=== PATIENT | female | born 1950 | race Caucasian/White ===

== ENCOUNTER → 2017-07-08 15:22 | Outpatient (CLI) | payer MEDICARE, SELFPAY ==
[2017-07-08 17:38] LABS: Absolute Lymphocyte Count 2.49 X10^3/ul (0.83-4.51); Absolute Neutrophil Count 3.7 X10^3/uL (2.0-7.7); Basophil# 0.03 X10^3/uL; Basophil% 0.4 % (0-1); Eosinophil# 0.09 X10^3/uL; Eosinophils% 1.3 % (0-5); Hematocrit 35.2 % (37-47); Hemoglobin 11.1 g/dl (12.0-15.0); Lymphocyte # 2.49 X10^3/ul (4.0); Lymphocyte % 37.1 % (19-41); Mean Corp Hgb Conc 31.5 g/gl (32-36); Mean Corpuscular Hgb 23.7 pg (27.0-32.0); Mean Corpuscular Volume 75.1 fL (81-99); Mean Platelet Vol. 10.3 fl (6.2-12.0); Monocyte# 0.39 X10^3/uL; Monocyte% 5.8 % (0-10); Neutrophil # 3.72 X10^3/uL (2.7-7.7); Neutrophil % 55.4 % (47-70); Platelet Count 279 K/mm3 (150-450); RBC Distribution Width CV 15.1 % (11.6-14.6); RBC Distribution Width SD 41.1 fl (35.1-43.9); Red Blood Count 4.69 M/mm3 (4.2-5.4); White Blood Count 6.7 K/mm3 (4.4-11.0)
[2017-07-08 17:39] LABS: POSITIVE COUNT NO; POSITIVE DIFFERENTIAL NO; POSITIVE MORPHOLOGY NO
[2017-07-08 18:38] LABS: T3 Total - Triiodothyronine 0.82 ng/mL (0.6-1.81)
[2017-07-08 18:40] LABS: BUN 22 mg/dL (7-18); Creatinine, Serum 0.84 mg/dL (0.55-1.02); Glucose 84 mg/dL (74-106)
[2017-07-08 18:41] LABS: ALB/GLOB Ratio 1.2 RATIO (0.9-2.4); AST(SGOT) 15 U/L (15-37); Alanine Aminotransfer ALT/SGPT 22 U/L (13-56); Albumin, Serum 3.9 g/dL (3.2-5.0); Alkaline Phosphatase 53 U/L (45-117); Anion Gap 11 (5-15); BUN/Creat Ratio 26.1 RATIO (10-20); Calcium,Total 8.8 mg/dL (8.5-10.1); Chloride 103 mmol/L (98-107); EST Glomerular Filtration Rate 71 mL/min (>60); Est Glom Filt Rate - Afr Amer 86 mL/min (>60); Globulin 3.2 g/dL (2.2-4.2); Potassium 3.9 mmol/L (3.5-5.1); Protein, Total 7.1 g/dL (6.4-8.2); Sodium Level 140 mmol/L (136-145); T4 Free Direct 0.81 ng/dL (0.76-1.46); Thyroid Stim Hormone (TSH) 1.51 uIU/mL (0.358-3.74)
== END ==
PROVIDERS: Family Provider Family Medicine; PCP Family Medicine; Visit Provider Family Medicine
DX: K59.09 Other constipation (principal); R53.83 Other fatigue; R30.0 Dysuria
CPT/HCPCS: 36415; 80053; 84439; 84443; 84480; 85025; 87086; 87088

== ENCOUNTER 2017-11-19 20:38 | Emergency (ER) | payer MEDICARE, SELFPAY ==
[2017-11-19 20:38] VITALS: BP 120/62; PULSE 64; RESP 12; TEMP 36.9; O2SAT 100; BMI 24.5
--- NOTE | 2017-11-19 21:12 | EKG12_ITS ---
Test Reason : CP Blood Pressure : / mmHG Vent. Rate : 061 BPM Atrial Rate : 061 BPM P-R Int : 152 ms QRS Dur : 074 ms QT Int : 428 ms P-R-T Axes : 056 019 073 degrees QTc Int : 430 ms Sinus rhythm with Fusion complexes Nonspecific T wave abnormality Abnormal ECG Confirmed by TIM MARTINEZ, ARYA ([id number]), editor news DELMY MCMAHON ([id number]) on 11/20/2017 1:03:38 PM Referred By: TARA Confirmed By:ARYA DUMONT MD
--- NOTE | 2017-11-19 21:15 | RAD_ITS ---
STUDY: X-RAY CHEST REASON FOR EXAM: Female, 67 years old. Chest pain TECHNIQUE: Single AP portable view of the chest. COMPARISON: 08/03/2015. FINDINGS: The lungs are clear and expanded. There is no demonstrated pleural abnormality. Normal size heart. Normal mediastinum and suraj. Normal visualized pulmonary arteries. Normal visualized aortic arch and descending thoracic aorta. There is a dextroscoliosis of the thoracic spine. Normal visualized ribs, clavicles, and shoulders. There is no demonstrated abnormality of the visualized soft tissue structures of the upper abdomen. RAD/Chest 1 View (Portable) IMPRESSION: No acute chest disease. Electronically Signed: Jj Navarro MD at 21:29 EDT , Service support ,
[2017-11-19 21:23] LABS: Absolute Neutrophil Count 2.6 X10^3/uL (2.0-7.7); Basophil# 0.02 X10^3/uL; Basophil% 0.3 % (0-1); Eosinophils% 1.7 % (0-5); Hematocrit 31.6 % (37-47); Hemoglobin 10.1 g/dl (12.0-15.0); Lymphocyte % 47.3 % (19-41); Mean Corpuscular Hgb 23.4 pg (27.0-32.0); Mean Corpuscular Volume 73.3 fL (81-99); Mean Platelet Vol. 9.5 fl (6.2-12.0); Monocyte% 6.8 % (0-10); Neutrophil # 2.59 X10^3/uL (2.7-7.7); Neutrophil % 43.7 % (47-70); Platelet Count 181 K/mm3 (150-450); RBC Distribution Width CV 14.4 % (11.6-14.6); RBC Distribution Width SD 38.6 fl (35.1-43.9); Red Blood Count 4.31 M/mm3 (4.2-5.4); White Blood Count 5.9 K/mm3 (4.4-11.0)
[2017-11-19 21:25] LABS: Differential Indicated SCAN CRITERIA MET; POSITIVE COUNT NO; POSITIVE DIFFERENTIAL NO; POSITIVE MORPHOLOGY YES
[2017-11-19 21:33] LABS: Anion Gap 9 (5-15); BUN 19 mg/dL (7-18); BUN/Creat Ratio 24.2 RATIO (10-20); Calcium,Total 8.5 mg/dL (8.5-10.1); Chloride 102 mmol/L (98-107); Creatinine, Serum 0.78 mg/dL (0.55-1.02); EST Glomerular Filtration Rate 77 mL/min (>60); Est Glom Filt Rate - Afr Amer 94 mL/min (>60); Estimated Creatinine Clearance 38.68 ml/min; Glucose 98 mg/dL (74-106); Potassium 3.3 mmol/L (3.5-5.1); Sodium Level 136 mmol/L (136-145)
--- NOTE | 2017-11-19 21:35 | ED.DCSUM_ITS ---
- ER Visit Summary Date of Service: 11/19/17 Chief Complaint: Epigastric abdominal pain History of Present Illness: The patient is a 67 F hobson eating dinner with her family at a restaurant. At sudden onset epigastric abdominal pain around 8 PM. Denies nausea or vomiting. Denies diarrhea. No melena. Says there is absolutely no chest pain. She did not feel like she could take a deep breath. Currently states the pain is much better. She has had a prior cholecystectomy. Denies any underlying cardiac history. States she is very healthy works out multiple times a week has had no chest pain or exertional dyspnea recently. States that she has had some constipation last several days. Denies any fever. Physical Examination: Well-appearing older female. Vital signs are stable afebrile. Her pulse ox is 100% on room air. No signs of hypoxia. H EENT exam unremarkable. Neck nontender. Lungs clear to auscultation bilaterally. Heart regular rhythm no murmur rate about 65. Abdomen is soft nondistended normal bowel sounds. She does have mild epigastric tenderness. No rebound or guarding. No rigidity. No pulsatile mass. No hernias or masses. No distention. Right upper and right lower quadrant unremarkable. Normal bowel sounds. No peritoneal signs. Moving all 4 extremities. Neurovascularly intact. Calves are nontender. Normal dorsi plantarflexion. Normal DP pulses. Normal radial pulses. Back exam nontender. Neurologic exam normal. No focal motor deficits. Test Results: CBC white count of 5.9. H&H 10 and 31 which is around her baseline anemia. Electrolytes potassium 3.3. Normal creatinine and gap. Liver enzymes ALT slightly elevated at 103 AST is 213 lipase is normal. Troponin normal. EKG sinus rhythm she did have some inverted T waves and ST flattening which is also seen on a prior EKG from 2016. Chest x-ray was unremarkable normal cardiac silhouette and mediastinum. KUB showed a large amount of fecal stool. No signs of obstruction no free air. She had scoliosis and degenerative changes of her lumbar spine. Patient did also have a CT abdomen and pelvis to the amount of pain and she became transiently hypotensive after pain meds. This was read by the radiologist reviewed by me again showed a retention but nothing else acute. No bowel obstruction. No AAA. No free air. Emergency Department Course and Treatment: Patient will undergo both cardiac and abdominal workup. She was treated with morphine. A liter normal saline. Multiple repeat exams she is doing better currently at 2345. Patient will be treated with p.o. magnesium citrate. If she has a large bowel movement she will be discharged to home. Treatment Plan: Plenty of fluids, fiber and home-going instructions for constipation. Disposition: Discharge Impression: Acute epigastric abdominal pain secondary to constipation This note was generated with [employer] dictation software. It may contain incorrect words, spelling, and punctuation that were not noted in review of the chart prior to signing ED Disposition - Plan for ED Patient: Chief Complaint: Chest Pain Referrals: Allie Mcfarlane DO [Primary Care Provider] -
[2017-11-19 21:37] LABS: Differential Comment SCANNED
[2017-11-19 21:44] VITALS: BP 116/74; PULSE 62; RESP 18; O2SAT 100
--- NOTE | 2017-11-19 21:45 | RAD_ITS ---
STUDY: X-RAY - ABDOMEN/PELVIS REASON FOR EXAM: Female, 67 years old. Abdominal pain. TECHNIQUE: Single AP view of the abdomen / pelvis. COMPARISON: None. FINDINGS: Normal visualized lung bases. There is an abundance of fecal material throughout the colon. No definite bowel obstruction. There is no demonstrated free abdominal air. The visualized liver, spleen and kidneys are grossly normal in size and morphology. Normal soft tissue structures. Mild to moderate levoconvex scoliosis. RAD/Abdomen Single View (Portable) IMPRESSION: Marked diffuse fecal retention. Electronically Signed: Jj Navarro MD at 22:17 EDT , Service support ,
[2017-11-19 22:03] LABS: Lipase 255 U/L (73-393)
[2017-11-19] MEDS: Morphine 4 MG/ML Syringe IV (22:08)
[2017-11-19] MEDS: Ondansetron 4 MG/2 ML Vial IV (22:08)
[2017-11-19 22:09] LABS: AST(SGOT) 213 U/L (15-37); Alanine Aminotransfer ALT/SGPT 103 U/L (13-56); Albumin, Serum 3.9 g/dL (3.2-5.0); Alkaline Phosphatase 50 U/L (45-117); Bilirubin, Direct 0.15 mg/dL (0.00-0.30); Globulin 3.1 g/dL (2.2-4.2)
--- NOTE | 2017-11-19 22:33 | CT_ITS ---
STUDY: CT ABDOMEN AND PELVIS WITH CONTRAST REASON FOR EXAM: Female, 67 years old. Epigastric pain. RADIATION DOSAGE (If Supplied By Facility): CTDIvol = ( 11.01 ) mGy, DLP = ( 549.42 ) mGycm TECHNIQUE: Transaxial images were obtained from the dome of the diaphragm to the symphysis pubis without oral contrast. 100ML ml of Isovue 300 contrast was administered. Sagittal and coronal images were reconstructed. Individualized dose optimization techniques were used for this CT. COMPARISON: 10/08/2015 FINDINGS: The visualized lung bases are unremarkable. The visualized portions of the heart are within normal limits. Normal liver. There are surgical clips in the gallbladder fossa consistent with a prior cholecystectomy. Normal spleen. Normal pancreas. Normal bilateral adrenal glands. Normal right kidney. Normal left kidney. Evaluation of the GI tract is limited by absence of oral contrast. Cannot exclude stomach wall thickening. No dilated loops of bowel or evidence for obstruction. Cannot exclude segmental thickening of the wu of the small or large bowel. Cannot exclude enteritis or colitis. There is marked diffuse fecal retention throughout the colon. Appendix within normal limits. Normal abdominal aorta. Normal inferior vena cava. Normal retroperitoneum. Normal urinary bladder. Normal visualized uterus. Normal abdominal wall. There are diffuse degenerative changes of the visualized lumbar spine. [id number]-hp-[id number] levoconvex scoliosis. CT/Abdomen/Pelvis W IV Cont ONLY IMPRESSION: No definite acute abnormality. However there is marked diffuse fecal retention, and evaluation of the GI tract is in general, limited by the absence of oral contrast. Electronically Signed: Jj Navarro MD at 23:21 EDT , Service support ,
[2017-11-19] MEDS: 0.9% Normal Saline 1,000 ML 1000 ML IV (22:37)
[2017-11-19 22:38] VITALS: BP 83/50; PULSE 59
[2017-11-19 22:44] VITALS: BP 72/43; PULSE 64; RESP 24; O2SAT 100
[2017-11-19 23:25] VITALS: BP 109/67; PULSE 66; RESP 16; O2SAT 100
--- NOTE | 2017-11-19 23:50 | ED.DEP ---
ED Disposition - Plan for ED Patient: Disposition: Home or Assisted Living Chief Complaint: Chest Pain Instructions: ED Constipation Referrals: Allie Mcfarlane DO [Primary Care Provider] - As Needed Additional Instructions: Plenty of fluids and fiber. At home he may want to consider stool softeners to help have regular bowel movements. Follow-up your primary care physician or return if feeling worse.
[2017-11-19] MEDS: Magnesium Citrate 300 ML PO (23:51)
--- NOTE | 2017-11-20 00:24 | ED.DEP ---
ED Disposition - Plan for ED Patient: Disposition: Home or Assisted Living Chief Complaint: Chest Pain Instructions: ED Constipation Prescriptions: Peg 3350/Na Sulf,Bicarb,Cl/KCl [Golytely Solution] 4,000 ml PO X1 #1 soln.recon Referrals: Allie Mcfarlane DO [Primary Care Provider] - As Needed Additional Instructions: Plenty of fluids and fiber. At home he may want to consider stool softeners to help have regular bowel movements. Follow-up your primary care physician or return if feeling worse.
== END 2017-11-20 00:54 | disposition home or self-care (01) ==
PROVIDERS: Emergency Provider Emergency Medicine; Family Provider Family Medicine; PCP Family Medicine
DX: K59.00 Constipation, unspecified (principal); M41.9 Scoliosis, unspecified; Z90.49 Acquired absence of other specified parts of digestive tract
CPT/HCPCS: 71045; 74018; 74177; 80048; 80076; 83690; 84484; 85025; 93005; 96374; 99285; J7030; Q9967; A4216; J2405

== ENCOUNTER → 2018-05-13 16:05 | Outpatient (CLI) | payer MEDICARE, SELFPAY ==
[2018-05-13 18:07] LABS: ALB/GLOB Ratio 1.3 RATIO (0.9-2.4); AST(SGOT) 14 U/L (15-37); Alanine Aminotransfer ALT/SGPT 30 U/L (13-56); Albumin, Serum 4.2 g/dL (3.2-5.0); Alkaline Phosphatase 56 U/L (45-117); Anion Gap 7 (5-15); BUN 24 mg/dL (7-18); Calcium,Total 8.8 mg/dL (8.5-10.1); Chloride 104 mmol/L (98-107); Cholesterol 260 mg/dL (200); Creatinine, Serum 0.67 mg/dL (0.55-1.02); EST Glomerular Filtration Rate 93 mL/min (>60); Est Glom Filt Rate - Afr Amer 113 mL/min (>60); Globulin 3.3 g/dL (2.2-4.2); Glucose 88 mg/dL (74-106); High Density Lipoprotein 103 mg/dL; Potassium 3.7 mmol/L (3.5-5.1); Protein, Total 7.5 g/dL (6.4-8.2); Sodium Level 138 mmol/L (136-145); Triglycerides 74 mg/dL; Very Low Density Lipoprotein 15 mg/dL (5-40)
== END ==
PROVIDERS: Family Provider Family Medicine; PCP Family Medicine; Visit Provider Family Medicine
DX: Z51.81 Encounter for therapeutic drug level monitoring (principal); E78.5 Hyperlipidemia, unspecified
CPT/HCPCS: 36415; 80053; 80061

== ENCOUNTER → 2018-07-27 12:00 | Outpatient (CLI) | payer MEDICARE, SELFPAY ==
--- NOTE | 2018-07-27 12:02 | BI_ITS ---
MAMMOGRAPHY - BILATERAL SCREENING REASON FOR EXAM: Female, 68 years old. Routine annual screening examination. PERTINENT HISTORY: Mother with breast cancer. TECHNIQUE: Digital bilateral breast ginny (3D mammographic acquisition) in the CC and MLO projections. 2-D mediolateral oblique (MLO) and craniocaudad (CC) views of both breasts were obtained. CAD: Full Field Digital Mammography with Computer Added Detection was performed. COMPARISON: Comparison is made with prior study dated March 21, 2017 and February 26, 2016. FINDINGS: Breast Composition: There are scattered areas of fibroglandular density. There are no dominant masses or suspicious calcifications. Stable 9.3 mm x 10 mm calcified nodule in the central slightly medial aspect of the left breast suggestive of a calcifying fibroadenoma. No other significant abnormalities are identified. There has been no significant change since the prior study. BI/SCREENING MAMM (CAD), BILAT IMPRESSION: Stable bilateral screening mammogram. Yearly follow-up mammogram recommended. (A) ASSESSMENT CATEGORY: BIRADS Category 2: Benign. A letter regarding these results will be sent to the patient by the facility within 30 days. Approximately 10% of breast cancers are not detected by mammography. A normal mammogram should not delay biopsy of a clinically suspicious abnormality. [id number] Electronically Signed: Huseyin Crawley, at 13:58 EDT , Service support ,
== END ==
PROVIDERS: Family Provider Family Medicine; PCP Family Medicine; Referring Provider Family Medicine; Visit Provider Family Medicine
DX: Z12.31 Encounter for screening mammogram for malignant neoplasm of breast (principal)
CPT/HCPCS: 77063; 77067

== ENCOUNTER → 2018-08-24 14:12 | Outpatient (CLI) | payer MEDICARE, SELFPAY ==
[2018-08-24 12:36] VITALS: BMI 23.0
[2018-08-24 14:28] LABS: Bacteria 0 SEEN /hpf (None Seen); Mucous, Urine 0 SEEN /hpf (<or=2+); White Blood Cells 0 SEEN /hpf (0-5)
[2018-08-24 14:55] LABS: Color, Urine Yellow (Yellow); Glucose, Dipstick Normal (Normal); Ketone-Dipstick Negative (Negative); Leukocyte Esterase-Dipstick Negative /ul (Negative); Nitrite-Dipstick Negative (Negative); Occult Blood-Urine 25 /ul (Negative); Protein-Dipstick Negative (Negative); Urine Bilirubin Dipstick Negative (Negative); Urine Clarity Sl. Cloudy (Clear); Urine Urobilinogen Normal (Normal)
[2018-08-24 15:03] LABS: Red Blood Cells-Urine 0-5 SEEN /hpf (0-5); Squamous Epithelial Cells - UA 0-5 SEEN /hpf (5-10)
== END ==
PROVIDERS: Family Provider Family Medicine; PCP Family Medicine; Referring Provider Physician Assistant Surgical; Visit Provider Physician Assistant Surgical
DX: R39.15 Urgency of urination (principal); R35.0 Frequency of micturition
CPT/HCPCS: 81001; 87086

== ENCOUNTER → 2018-10-11 14:25 | Outpatient (CLI) | payer MEDICARE, SELFPAY ==
[2018-10-11 10:43] VITALS: BMI 22.9
[2018-10-11 14:35] LABS: Bacteria 0 SEEN /hpf (None Seen); Mucous, Urine 0 SEEN /hpf (<or=2+); Red Blood Cells-Urine 0 SEEN /hpf (0-5); Squamous Epithelial Cells - UA 0 SEEN /hpf (5-10); White Blood Cells 0 SEEN /hpf (0-5)
[2018-10-11 14:40] LABS: Color, Urine Yellow (Yellow); Glucose, Dipstick Normal (Normal); Ketone-Dipstick Negative (Negative); Leukocyte Esterase-Dipstick Negative /ul (Negative); Nitrite-Dipstick Negative (Negative); Occult Blood-Urine 25 /ul (Negative); Protein-Dipstick Negative (Negative); Urine Bilirubin Dipstick Negative (Negative); Urine Clarity Clear (Clear); Urine Urobilinogen Normal (Normal)
== END ==
PROVIDERS: Family Provider Family Medicine; PCP Family Medicine; Referring Provider Physician Assistant Surgical; Visit Provider Physician Assistant Surgical
DX: R30.0 Dysuria (principal)
CPT/HCPCS: 81001; 87086

== ENCOUNTER → 2018-10-26 17:10 | Outpatient (CLI) | payer MEDICARE, SELFPAY ==
[2018-10-26 11:12] VITALS: BMI 22.9
== END ==
PROVIDERS: Family Provider Family Medicine; PCP Family Medicine; Referring Provider Nurse Practitioner Women's Health; Visit Provider Nurse Practitioner Women's Health
DX: R39.15 Urgency of urination (principal)
CPT/HCPCS: 87070; 87205

== ENCOUNTER → 2019-05-23 11:03 | Outpatient (CLI) | payer MEDICARE, SELFPAY ==
[2019-05-13 17:37] VITALS: BMI 22.9
[2019-05-23 12:25] LABS: Absolute Lymphocyte Count 2.61 X10^3/uL (0.83-4.51); Absolute Neutrophil Count 2.5 X10^3/uL (2.0-7.7); Basophil# 0.02 X10^3/uL; Basophil% 0.4 % (0-1); Eosinophil# 0.08 X10^3/uL; Eosinophils% 1.4 % (0-5); Hemoglobin 11.5 g/dL (12.0-15.0); Lymphocyte # 2.61 X10^3/ul (4.0); Lymphocyte % 46.6 % (19-41); Mean Corp Hgb Conc 30.3 g/dL (32-36); Mean Corpuscular Hgb 22.4 pg (27.0-32.0); Mean Corpuscular Volume 74.1 fL (81-99); Mean Platelet Vol. 9.6 fl (6.2-12.0); Monocyte# 0.34 X10^3/uL; Monocyte% 6.1 % (0-10); NRBC Flagged by Analyzer 0 % (0-5); Neutrophil # 2.53 X10^3/uL (2.7-7.7); Neutrophil % 45.1 % (47-70); Platelet Count 332 K/mm3 (150-450); RBC Distribution Width CV 14.8 % (11.6-14.6); RBC Distribution Width SD 39.6 fl (35.1-43.9); Red Blood Count 5.13 M/mm3 (4.2-5.4); White Blood Count 5.6 K/mm3 (4.4-11.0)
[2019-05-23 13:04] LABS: ALB/GLOB Ratio 1.2 RATIO (0.9-2.4); AST(SGOT) 11 U/L (15-37); Alanine Aminotransfer ALT/SGPT 24 U/L (13-56); Albumin, Serum 3.9 g/dL (3.2-5.0); Alkaline Phosphatase 55 U/L (45-117); Anion Gap 7 (5-15); BUN 16 mg/dL (7-18); BUN/Creat Ratio 21.1 RATIO (10-20); Calcium,Total 8.9 mg/dL (8.5-10.1); Chloride 105 mmol/L (98-107); Cholesterol 240 mg/dL (200); Creatinine, Serum 0.76 mg/dL (0.55-1.02); EST Glomerular Filtration Rate 80 mL/min (>60); Est Glom Filt Rate - Afr Amer 97 mL/min (>60); Globulin 3.2 g/dL (2.2-4.2); Glucose 93 mg/dL (74-106); High Density Lipoprotein 105 mg/dL; Potassium 3.9 mmol/L (3.5-5.1); Protein, Total 7.1 g/dL (6.4-8.2); Sodium Level 139 mmol/L (136-145); Thyroid Stim Hormone (TSH) 1.36 uIU/mL (0.358-3.74); Triglycerides 51 mg/dL; Very Low Density Lipoprotein 10 mg/dL (5-40)
== END ==
PROVIDERS: PCP Family Medicine; Visit Provider Family Medicine
DX: Z00.00 Encounter for general adult medical examination without abnormal findings (principal); E78.5 Hyperlipidemia, unspecified; R53.83 Other fatigue; Z51.81 Encounter for therapeutic drug level monitoring
CPT/HCPCS: 36415; 80053; 80061; 84443; 85025

== ENCOUNTER → 2019-05-24 08:24 | Outpatient (REF) | payer MEDICARE, SELFPAY ==
[2019-05-24 08:15] VITALS: BMI 24.0
--- NOTE | 2019-05-24 08:34 | RAD_ITS ---
HISTORY: BILATERAL HAND NUMBNESS AND NECK PAIN TECHNIQUE: Cervical spine 5 views Number of images including paperwork: 5 COMPARISON: 09/01/2014 FINDINGS: VERTEBRAE: No acute fracture. VERTEBRAL ALIGNMENT: No traumatic subluxation. DISKS AND JOINTS: Moderate to severe disc space narrowing at C5-6 with osteophyte formation, increased compared to the previous study. Facet arthropathy. SOFT TISSUES: Unremarkable paraspinous soft tissues. RAD/Cerv Spine 4 or 5 Views IMPRESSION: No acute osseous abnormality. Cervical spondylosis. at 0528 Reported and signed by: Heather Barahona MD Electronically Signed: Heather Barahona MD at 5:28 EST Tel , Service support ,
== END ==
LOC: HPRAD 08:24
PROVIDERS: PCP Family Medicine; Referring Provider Family Medicine; Visit Provider Family Medicine
DX: M54.2 Cervicalgia (principal); R20.0 Anesthesia of skin
CPT/HCPCS: 72050

== ENCOUNTER → 2019-08-30 06:21 | Outpatient (CLI) | payer MEDICARE, SELFPAY ==
[2019-05-31 09:46] VITALS: BMI 24.0
--- NOTE | 2019-05-31 10:31 | HP_ITS ---
Intake Vital Signs 05/31/19 BMI 24.0 05/31/19 Height 5 ft 05/31/19 Weight: 124 lb 05/31/19 BMI 24.2 05/31/19 BP 157/82 H 05/31/19 Blood Pressure Location Rt brachial 05/31/19 Position Sitting 05/31/19 Respiration 18 05/31/19 Pulse 67 05/31/19 Pulse Source Monitor 05/31/19 Temp 98.0 F 05/31/19 Temp Source Oral 05/31/19 Pulse Oximetry (%) 100 05/31/19 Oxygen Delivery Method room air Intake Visit Reasons: abd pain, cscope Chief Complaint: constipation/abdominal pain Fur Repair Inspector Required: No Is patient in pain?: No Allergies No Known Allergies Allergy (Verified 05/31/19 09:45) Medications Zolpidem Tartrate [Ambien] 10 mg PO DAILY 11/09/15 [History Confirmed 05/31/19] Paroxetine HCl [Paxil] 40 mg PO DAILY 11/19/17 [History Confirmed 05/31/19] sumatriptan succinate 100 mg tablet PO 30 Days #9 tab 08/24/18 [History Confirmed 05/31/19] triamcinolone acetonide 55 mcg nasal spray aerosol 2 spray INTRANASAL DAILY #10.8 ml 03/04/19 [Rx Confirmed 05/31/19] docusate sodium 100 mg capsule 100 mg PO DAILY #30 cap 05/31/19 [Rx Confirmed 05/31/19] [facility] Medical History Sinusitis, acute (Acute) Segmental and somatic dysfunction of thoracic region (Acute) Degenerative disc disease, cervical (Acute) Segmental and somatic dysfunction of lumbar region (Acute) Segmental and somatic dysfunction of cervical region (Acute) Urinary urgency (Acute) Migraine (Chronic) Depression (Chronic) Constipation (Acute) Anemia (Acute) Back pain (Acute) Incontinence (Acute) Surgical History (Updated 05/31/19 @ 09:42 by Diana Sears) history ORIF leg (Acute) History of cholecystectomy (Acute) Hx of tonsillectomy (Acute) Family History (Updated 05/31/19 @ 09:43 by Diana Sears) Mother Breast cancer Father Cancer Hypertension CVA (cerebral vascular accident) Diabetes Thyroid disorder Brother Diabetes Social History (Updated 05/31/19 @ 10:31 by Oxana Grimes MD) Smoking Status: Never smoker second hand exposure: No alcohol intake: current Female Reproductive History Menstrual Ab induced: 2 HPI HPI HPI: HIRAL BAPTISTE, is a 69 F who presents to the office today for HPI HPI Surgical H&P: Yes HPI: HIRAL BAPTISTE, is a 69 F who presents to the office today for constipation. In November 2017 patient denied severe upper abdominal pain and was brought to the ER for for possible heart attack, on work-up patient was shown to have pre-severe constipation. Patient states that she has had constipation throughout her adult life. Her last colonoscopy was in 2015 which showed a hyperplastic polyp in the sigmoid. Patient states that she may not have a bowel movement for about 5 days then she will take 2 Dulcolax pills as needed. Patient states that she does try to drink enough water and exercise she did try fiber however she got increased bloating with that patient is unsure exactly how much fiber she gets in a day. Patient states that MiraLAX has not really worked that well for her anymore she is used it for quite a while. Patient had also been on Linzess after the 2016 scope but states she only had a small bowel movement with that as well. Patient does admit to some reflux and food occasionally catching in her lower esophagus but does go down she states about over 10 years ago she had an EGD and made them been told she has sliding hiatal hernia at that time she had previously been on ranitidine but recently has not been on anything. ROS General General: No weight change, appetite, fatigue, colon cancer, breast cancer or weakness HEENT HEENT: No difficulty swallowing, eye injury, eye surgery, swollen glands or hoarseness Endo Endocrine: No thyroid disease, diabetes mellitus, thyroid cancer, Hair loss, heat intolerance or cold intolerance Skin Skin: No rash or changing moles Breast Breast: No left breast lump, right breast lump, nipple discharge, breast pain, abnormal mammogram, abnormal US or breast enlargement Musc Musculoskeletal: Yes back problems and arthritis; no rheumatoid arthritis, gout or joint pain Cardio Cardiovascular: No murmur, pacemaker, heart disease, atrial fibrillation, high blood pressure, heart attack, heart stent, palpitations, shortness of breat with exertion or chest pain Psych Psychiatric: No depression, anxiety or hearing voices Resp Respiratory: No shortness of breath, No sleep apnea, No cough, No COPD, No asthma, No emphysema, No wheezing Gastro Gastrointestinal: Yes abdominal pain, No nausea or vomiting, No diarrhea, Yes constipation, No blood in stool, Yes acid reflux, Yes hemorrhoids, No ulcers, No gallbladder problem, No black,tarry stools Vignesh Hematologic: No blood thinners, No blood disorders, No bleeding, Yes anemia, No blood clots Neuro Neurologic: No system reviewed and no additional complaints, except as docu, No as per HPI, No abnormal walking, No abnormal hearing, No abnormal movements, No abnormal speech, No behavioral changes, No burning sensations, No confusion, No seizure-like activity, No unsteadiness, No dizziness, No localized weakness, No frequent falls, No headache(s), No lack of coordination, No loss of vision, No memory loss, Yes numbness, No other visual disturbances, No radiating pain, No restless legs, No sensory deficit, No fainting, Yes tingling, No tremor(s), No weakness, No other Exam Const General: cooperative, comfortable, no acute distress Chest Breast Palpation: No nipple discharge Resp Effort & Inspection: normal respiratory effort Cardio Rate: regular rate Heart Sounds: no murmurs GI Inspection: non-distended Palpation: soft, no guarding, tender (Mild left upper quadrant, less in the bilateral lower quadrant, no peritoneal signs) Neuro Cranial Nerves: CN's II-XI intact bilaterally Extrem General: no clubbing, cyanosis or edema Psych Affect: normal affect Assessment & Plan Problems 1. Constipation K59.00 2. Gastroesophageal reflux disease K21.9 Plan Patient was previously on ranitidine but has stopped this and she has had more issues with reflux and possible food catching in her throat. Did offer an EGD but she would prefer to hold off and try taking Pepcid/famotidine to see if this improves her symptoms. Discussed patient if this does not improve the symptoms I would recommend the EGD now. Discussed with patient due to her constipation I would recommend that she get about 20 g of fiber daily however I cautioned her advancing her fiber too quickly if she has not getting much now do not jump up a lot the next day as she will get increased bloating with this. Discussed with patient tracking her fiber did give her a list of high-fiber foods also list supplements including Yazidism oats high-fiber which is 10 g per serving and fiber well by diffusion Gummies 2 Gummies equal 5 g. Also recommend patient take a daily stool softener and if need be twice daily. I have discussed the above with the patient. I have offered the patient colonoscopy for evaluation. I have explained the risks/benefits of the procedure and described the procedure. I have discussed the risks with the patient, including but not limited to: infection, bleeding, perforation of the GI tract requiring emergency surgery, inability to complete the procedure, injury to any internal organs, complications of anesthesia, etc. - the patient understands and agrees to proceed. I have answered all the patient's questions to the patient's satisfaction and the patient has no further questions. The patient has been given instructions for the colon cleansing preparation. 2- day of clears, magnesium citrate the first day and GoLYTELY the second day Oxana Grimes M.D. Pager: [phone] [facility] [address] [place] [address], [address] [place] [address] Office: [phone] Orders Orders: Colonoscopy Today Medications New: docusate sodium 100 mg PO DAILY 30 caps 3RF Plan Detail Goals Decrease pain and spasm Improve ROM Decrease inflammation Barriers DDD-cervical Follow Up We will schedule colonoscopy Coding Level of Care Code Off alexandre steward,level 3 Diagnoses Constipation K59.00 Gastroesophageal reflux disease K21.9 05/31/19 1031 <Electronically signed by Oxana Mendez am, MD> Date _ Oxana Grimes MD
== END ==
PROVIDERS: PCP Family Medicine; Referring Provider Family Medicine; Visit Provider Surgery
DX: Z01.818 Encounter for other preprocedural examination (principal)

== ENCOUNTER → 2019-11-08 | Outpatient (CLI) | payer MEDICARE, SELFPAY ==
[2019-05-31 09:46] VITALS: BMI 24.0
--- NOTE | 2019-11-08 12:30 | CT_ITS ---
STUDY: LOW DOSE CT LUNG CANCER SCREENING REASON FOR EXAM: Female, 69 years old. LUNG CANCER SCREENING. 30 PACK YEAR HISTORY RADIATION DOSAGE (If Supplied By Facility): CTDIvol = ( 2.01 ) mGy, DLP = ( 53.64 ) mGycm TECHNIQUE: No contrast was administered. Low dose technique was utilized (average mAS-38 and kVp 120). 1.25 mm axial source images with a slice interval of 1.25-mm were reconstructed in lung windows. 2.5 mm axial source images with a slice interval of 2.5-mm were reconstructed in lung windows. 5.0 mm axial source images with a slice interval of 5.0-mm were reconstructed in soft tissue windows. Nodule measured using lung windows on PACS and/or independent workstation with automated measurement of minimum and maximum diameter. Nodule measurement reported as average diameter rounded to the nearest whole number. Growth is defined as an increase ins size of greater than 1.5 mm. COMPARISON: Comparison is made with prior examination dated April 18, 2014. NODULES: No suspicious nodule is seen. Emphysema: Mild degree of linear scarring at the left lung base. Aorta: Mild calcified plaques at the level of the aortic arch. Coronary arteries: Coronary artery calcification. Mediastinal nodes: Small benign-appearing mediastinal lymph nodes. Other chest and abdominal findings: Mild scoliosis of the thoracic spine. CT/Low Dose CT Lung Screening IMPRESSION: Lung-RADS category 2 - Continue annual screening with LDCT in 12 months. IMPORTANT NOTES FOR USE: ACR Lung-RADS Version 1.0 Assessment Categories Release Date: August 29, 2013 Category: Coded 0-4 bases on nodule(s) with highest degree of suspicion. Negative screen is defined as categories 1 and 2; a positive screen is defined as categories 3 and 4. Category 3 and 4A nodules that are unchanged on interval CT should be coded as category 2, and individuals returned to screening in 12 months. Category 4X: Category 3 or 4 nodules with additional imaging findings that increase the suspicion of lung cancer, such as spiculation, GGN that doubles in size in 1 year, enlarged lymph notes, etc. Category Modifiers: S (significant finding unrelated to lung cancer) and C (prior history of treated lung cancer) may be added to the 0-4 Lung-RADS Electronically Signed: Huseyin Crawley, at 13:17 EDT , Service support ,
--- NOTE | 2019-11-08 13:10 | BI_ITS ---
MAMMOGRAPHY - BILATERAL SCREENING REASON FOR EXAM: Female, 69 years old. Routine annual screening examination. PERTINENT HISTORY: Mother with breast cancer. TECHNIQUE: Digital bilateral breast douglas (3D mammographic acquisition) in the CC and MLO projections. 2-D mediolateral oblique (MLO) and craniocaudad (CC) views of both breasts were obtained. CAD: Full Field Digital Mammography with Computer Added Detection was performed. COMPARISON: Comparison is made with prior examination dated July 27, 2018 and March 21, 2017. FINDINGS: Breast Composition: There are scattered areas of fibroglandular density. There are no dominant masses or suspicious calcifications. Stable 1 cm calcified nodule in the medial retroareolar region left breast. No other significant abnormalities are identified. There has been no significant change since the prior study. BI/SCREEN MAMM (CAD) W/DOUGLAS BILAT IMPRESSION: Stable bilateral screening mammogram. Yearly follow-up mammogram recommended. (A) ASSESSMENT CATEGORY: BIRADS Category 2: Benign. A letter regarding these results will be sent to the patient by the facility within 30 days. Approximately 10% of breast cancers are not detected by mammography. A normal mammogram should not delay biopsy of a clinically suspicious abnormality. [id number] Electronically Signed: Huseyin Crawley, at 15:05 EDT , Service support ,
== END | disposition home or self-care (01) ==
PROVIDERS: PCP Family Medicine; Referring Provider Nurse Practitioner Family; Visit Provider Family Medicine
DX: Z12.31 Encounter for screening mammogram for malignant neoplasm of breast (principal); Z12.2 Encounter for screening for malignant neoplasm of respiratory organs; Z87.891 Personal history of nicotine dependence
CPT/HCPCS: 77063; 77067; G0297

== ENCOUNTER 2019-11-14 07:34 | Day surgery (SDC) | payer MEDICARE, SELFPAY ==
[2019-05-31 09:46] VITALS: BMI 24.0
[2019-11-14] VITALS (9 sets, daily range): BP systolic 86–135; BP diastolic 44–76; PULSE 68–98; RESP 15–16; TEMP 36.2–36.6; O2SAT 98–100; BMI 24.3
--- NOTE | 2019-11-14 07:49 | H&P.OPEN ---
History of Present Illness Date of Admission: 11/14/19 The patient is a 69 year old F presents for a skin screening colonoscopy due to history of polyps. Patient states that she has had constipation throughout her adult life, she did state that she tried fiber however she thought she had increased bloating with that. She has bowel movements only about every 3 to 4 days. Her last colonoscopy was in 2016 which showed a hyperplastic polyp in the sigmoid. Patient had previously tried Linzess in 2016 and she is currently not on anything for constipation. Patient states her 2-day prep did go well. Patient states she still has reflux about every other day however she is not taking any medication for this she did have an EGD about 10 years ago. Past Medical/Surgical History - Planned Operation Planned Operative Procedure/s: COLONOSCOPY Date of Operative Procedure: 11/14/19 Permit Signed: Yes S.O.S: No Is This Patient Having a Total Joint: No - Previous Hospitalizations/Surgeries HX Hospitalizations: No HX of Surgeries: cscope. gallbladder. compound fx left leg. tonsillectomy Any Problems With Anesthesia: No You/Your Family Experience Fever (Hyperthermia) With Anes: No Cholinesterase deficiency: No - Cardiovascular Hx Chest Pain within Last 2 months: No Hx of Irregular Heartbeat and/or Afib: No Hx Heart Attack: No Hx Congestive Heart Failure: No Hx Rheumatic Fever: No Hx Hypertension: No Hx Internal Defibrillator: No Hx Pacemaker: No Hx Cardiac Catheterization: No Hx Cardiac Surgery/Stents/Etc.: No Hx Stress Test: Yes - 2014 HX Edema: No Hx Pain in Legs when Walking/Leg Cramps: No - Respiratory Chronic Cough: No HX of Shortness of Breath: No Hoarseness: No Hx Chronic Obstructive Pulmonary Disease (COPD): No Hx Asthma: No Hx Emphysema: No Hx Sleep Apnea: No Hx Oxygen Use at Home: No Hx Respiratory Tract Infection/Cold (presently): No Do You Snore Loudly (louder than talking or can be heard): No Do You Often Feel Tired/ Fatigued/ Sleepy Dring Daytime?: No Has Anyone Observed You Stop Breathing During Sleep?: No Result (for STOP score): Negative Hx Smoking: Yes - quit 20 yrs ago Smoking Status: Former smoker - Gastrointestinal Hx Gastroesophageal Reflux: No - occ Controlled With Meds: No Hx Gastrointestinal Disorders: No - CONSTIPATION Hx Gastrointestinal Bleed: No Hx Ulcer: No Hx Hiatal Hernia: No Difficulty Chewing/Swallowing: No Recent Onset of Swallowing Problems: No Special diet followed at home: No Hx Unplanned Weight Loss of 20#: No HX Unplanned Weight Gain of 20#: No - Neurological Hx Seizures: No HX Syncope/Blackout Spells/Unconsciousness: No Hx CVA/Stroke: No Hx Transient Ischemic Attacks (TIA): No Hx Multiple Sclerosis: No Hx Parkinson's Disease: No Hx Head/Neck Injury: No Hx Headaches: Yes - occ Hx Back Injury/Pain: No Recent Onset of Speech Difficulty: No Restless Legs: No Does patient have nerve stimulator: No - Blood Disorder Hx Leukemia: No Bleeding Tendencies: No Hx Deep Vein Thrombosis: No Hx High Cholesterol: No Blood Transmitted Disease: No Hx Hepatitis: No Hx Cirrhosis: No Hx Anemia: Yes - in the past Hx Blood Disorders: No - Reproduction : No Is Patient Lactating: No Hx Hysterectomy: No Hx Tubal Ligation: No Are You Post Menopause: Yes - Genitourinary Hx Renal Disease: No Hx Dialysis: No - Musculoskeletal Hx Arthritis: No Hx Rheumatoid Arthritis: No Hx Gout: No Recent Onset of an Orthopedic Problem: No - Endocrine Hx Diabetes: No Thyroid Disease: No Hx Steroid Therapy: No - Psycho/Social Hx Substance Use: No Hx Alcohol Use: Yes - social Hx Anxiety: Yes - on med Hx Depression: Yes - on med Mental Illness: No Hx Dementia: No - Miscellaneous Hx Cancer: No Recent Exposure to Contagious Disease: No Active MRSA: No Hx of C-Diff: No Any Loose Teeth: No Allergies No Known Allergies Allergy (Verified 11/14/19 07:43) Maternal Family History: Family History (Last Updated 05/31/19 @ 09:43 by Diana Sears) Mother Breast cancer Father Cancer Hypertension CVA (cerebral vascular accident) Diabetes Thyroid disorder Brother Diabetes No pertinent history - Discharge Is Pt Admitted From a [facility], or a Nursing Home: No Who Could Help: NIECE After D/C, Where Do you Plan to Go: Return Home - From the PAT History Number of Risk Factors: 4 - Physical Exam Vitals/I&O's: Body Mass Index (BMI) 24.0 General: Alert, Oriented x3, Cooperative, No apparent distress HEENT: Atraumatic Lungs: Normal air movement Cardiovascular: Regular rate Abdomen: Soft, Non Tender, Non-Distended Extremities: No clubbing, No cyanosis, No edema Neurological: Cranial nerves II-XII grossly intact Psych/Mental Status: Normal Affect Assessment/Plan All Active Problems (Last Reviewed 05/31/19 @ 09:42 by Diana Sears) Sinusitis, acute (Acute) Segmental and somatic dysfunction of thoracic region (Acute) Degenerative disc disease, cervical (Acute) Segmental and somatic dysfunction of lumbar region (Acute) Segmental and somatic dysfunction of cervical region (Acute) Urinary urgency (Acute) 69-year-old female history of colon polyps, constipation Procedure Criteria Procedure Type: Elective COVID Risk Discussion: The surgeon/proceduralist and patient have discussed in detail the risk of exposure to and/or potential harm posed by the COVID-19 virus with having a surgery/procedure at this time versus the risk of delaying the surgery/procedure. It is not possible to know either the risk of delaying the surgery or procedure or chance of getting an infection with perfect accuracy, but a joint decision was made between the patient and the surgeon/proceduralist to proceed at this time with the scheduled surgery/procedure as indicated on the consent form. Surgery Risks - Colonoscopy I discussed with the patient the risks of the procedure: Yes Risks Include but are not Limited To: Risks include but are not limited to: Bleeding, perforation requiring further surgery, inability to complete colonoscopy requiring barium enema.
[2019-11-14] MEDS: Lactated Ringers 1,000 ML 100 ML IV (07:59)
--- NOTE | 2019-11-14 08:45 | COLBX_PTH ---
PATIENT: HIRAL BAPTISTE LOC: EN U#:[id number] AGE/SX: 69/F ROOM: RE11/14/[address]: Dr. Oxana Grimes MD : 1950 BED: DIS: 11/14/2019 SPEC #: [id number] RECD: 11/14/19 12:52 STATUS: [facility] EFREN #: [id number] ELIUD: 11/14/19 08:[address]: Oxana Grimes DEPT: SURGICAL PATHOLOGY RECD BY: Dayana Martin ENTERED: 11/15/19 08:02 SP TYPE: COLON BX OTHR DR: Dr. Allie Mcfarlane, DO Tissues: Rectum, NOS Procedures: Surgery Specimen Level IV HEADER OPERATION: Colonoscopy (MAC) PRE-OP DIAGNOSIS: History of polyps, constipation TISSUE SUBMITTED: Rectal polyp biopsy MICROSCOPIC DIAGNOSIS Rectal polyp, biopsy: Fragments of hyperplastic polyp. SJ:kate 11/16/19 MICROSCOPIC DESCRIPTION Slides are reviewed. GROSS DESCRIPTION Received in fixative is one container labeled with the patient's name and designated rectal polyp biopsy. The specimen consists of two irregular fragments of light villavicencio soft tissue that in aggregate measure 0.5 x 0.3 x 0.1 cm. The specimen is totally submitted in one cassette. / SJ:rg 11/15/19 TC:1 CPT: 25648
--- NOTE | 2019-11-14 09:21 | OP.COLON_ITS ---
Patient Name: Margarita Menon Procedure Date: 11/14/2019 8:32 AM Date of : 1950 Age: 69 Procedure: Colonoscopy Indications: High risk colon cancer surveillance: Personal history of colonic polyps Providers: Oxana Grimes MD Referring MD: Allie Mcfarlane Medicines: Monitored Anesthesia Care Patient Profile: This is a 69 year old female. Last Colonoscopy: 2015. Complications: No immediate complications. Procedure: Pre-Anesthesia Assessment: - Prior to the procedure, a History and Physical was performed, and patient medications and allergies were reviewed. The patient's tolerance of previous anesthesia was also reviewed. The risks and benefits of the procedure and the sedation options and risks were discussed with the patient. All questions were answered, and informed consent was obtained. Prior Anticoagulants: The patient has taken no previous anticoagulant or antiplatelet agents. ASA Grade Assessment: Per anesthesia. After reviewing the risks and benefits, the patient was deemed in satisfactory condition to undergo the procedure. After I obtained informed consent, the scope was passed under direct vision. Throughout the procedure, the patient's blood pressure, pulse, and oxygen saturations were monitored continuously. The pediatric colonoscope was introduced through the anus and advanced to the cecum, identified by the appendiceal orifice, ileocecal valve and palpation. The colonoscopy was technically difficult and complex due to a tortuous colon. Successful completion of the procedure was aided by applying abdominal pressure. The patient tolerated the procedure well. The quality of the bowel preparation was good. Scope In: 8:40:41 AM Scope Withdrawal Time 0 hours 18 minutes 38 seconds Scope Out: 9:11:04 AM Total Procedure Duration Time 0 hours 30 minutes 23 seconds Findings: Hemorrhoids were found on perianal exam. A less than 5 mm polyp was found in the rectum. The polyp was sessile. The polyp was removed with a cold biopsy forceps. Resection and retrieval were complete. Internal hemorrhoids were found. The hemorrhoids were Grade I (internal hemorrhoids that do not prolapse). The exam was otherwise without abnormality. Impression: - Hemorrhoids found on perianal exam. - One less than 5 mm polyp in the rectum, removed with a cold biopsy forceps. Resected and retrieved. - Internal hemorrhoids. - The examination was otherwise normal. Recommendation: - Discharge patient to home. - Resume previous diet. - Continue present medications. - Await pathology results. - Repeat colonoscopy in 5 years for surveillance based on pathology results. - Repeat colonoscopy in 5 years depending on overall health at that time. Procedure Code(s): --- Professional --- 21424, PT, Colonoscopy, flexible; with biopsy, single or multiple Diagnosis Code(s): --- Professional --- Z86.010, Personal history of colonic polyps K64.0, First degree hemorrhoids K62.1, Rectal polyp CPT copyright 2017 [employer]. All rights reserved. The codes documented in this report are preliminary and upon cable weaver review may be revised to meet current compliance requirements. MD Oxana Mclain MD 11/14/2019 9:20:55 AM This report has been signed electronically. Number of Addenda: 0 Note Initiated On: 11/14/2019 8:32 AM
--- NOTE | 2019-11-14 09:21 | OP.CCLET_ITS ---
11/14/2019 Allie Mcfarlane [address] [place] [address] Re : Colonoscopy procedure for Margarita Menon Dear Dr. Mcfarlane This procedure was performed on Thursday, November 14, 2019. My impressions and recommendations are as follows: Impressions : - Hemorrhoids found on perianal exam. - One less than 5 mm polyp in the rectum, removed with a cold biopsy forceps. Resected and retrieved. - Internal hemorrhoids. - The examination was otherwise normal. Recommendations : - Discharge patient to home. - Resume previous diet. - Continue present medications. - Await pathology results. - Repeat colonoscopy in 5 years for surveillance based on pathology results. - Repeat colonoscopy in 5 years depending on overall health at that time. My findings are described in the full procedure note, which is enclosed. If I can be of further assistance, please feel free to contact me at Doctor phone number(s): , Work: . Sincerely, MD Oxana Mclain MD 11/14/2019 9:20:55 AM This report has been signed electronically.
== END 2019-11-14 10:17 | disposition home or self-care (01) ==
LOC: EN 07:35 → AC 07:36
PROVIDERS: Anesthesiology; PCP Family Medicine; Referring Provider Family Medicine; Visit Provider Surgery
PROC: 0DJD8ZZ Inspection of Lower Intestinal Tract, Via Natural or Artificial Opening Endoscopic (ICD-10-PCS; CPT 45378; principal; 2019-11-14 08:40)
DX: Z12.11 Encounter for screening for malignant neoplasm of colon (principal); K62.1 Rectal polyp; K64.0 First degree hemorrhoids; K21.9 Gastro-esophageal reflux disease without esophagitis; F41.9 Anxiety disorder, unspecified; F32.9 Major depressive disorder, single episode, unspecified; Z86.010 Personal history of colon polyps; Z11.59 Encounter for screening for other viral diseases; Z87.891 Personal history of nicotine dependence; Z79.899 Other long term (current) drug therapy
CPT/HCPCS: 45380; 87635; 88305; C9803; G2023; J7120; U0003

== ENCOUNTER → 2019-11-23 | Outpatient (CLI) | payer MEDICARE, SELFPAY ==
[2019-11-14 07:50] VITALS: BMI 24.3
== END | disposition home or self-care (01) ==
LOC: MTDU 09:33
PROVIDERS: PCP Family Medicine; Referring Provider Family Medicine; Visit Provider Family Medicine
DX: U07.1 COVID-19 (principal)
CPT/HCPCS: 87635; G2023; U0003

== ENCOUNTER → 2019-12-07 14:59 | Outpatient (CLI) | payer MEDICARE, SELFPAY ==
[2019-12-07 12:54] VITALS: BMI 24.3
[2019-12-07 15:29] LABS: Bacteria 0 SEEN /hpf (None Seen); Mucous, Urine 0 SEEN /hpf (<or=2+); Red Blood Cells-Urine 0 SEEN /hpf (0-5); Squamous Epithelial Cells - UA 0 SEEN /hpf (5-10); White Blood Cells 0 SEEN /hpf (0-5)
[2019-12-07 15:32] LABS: Color, Urine Yellow (Yellow); Glucose, Dipstick Normal (Normal); Ketone-Dipstick Negative (Negative); Leukocyte Esterase-Dipstick Negative /ul (Negative); Nitrite-Dipstick Negative (Negative); Occult Blood-Urine Negative /ul (Negative); Protein-Dipstick Negative (Negative); Specific Gravity, Urine 1.005 (1.002-1.030); Urine Bilirubin Dipstick Negative (Negative); Urine Clarity Clear (Clear); Urine Urobilinogen Normal (Normal)
== END ==
PROVIDERS: PCP Family Medicine; Referring Provider Physician Assistant; Visit Provider Physician Assistant
DX: N39.0 Urinary tract infection, site not specified (principal)
CPT/HCPCS: 81001; 87086

== ENCOUNTER → 2020-02-21 | Outpatient (CLI) | payer MEDICARE, SELFPAY ==
[2019-12-07 12:54] VITALS: BMI 24.3
[2020-02-21 15:02] LABS: Absolute Neutrophil Count 2.4 X10^3/uL (2.0-7.7); Basophil# 0.04 X10^3/uL; Basophil% 0.8 % (0-1); Eosinophil# 0.07 X10^3/uL; Eosinophils% 1.3 % (0-5); Hematocrit 34.8 % (37-47); Hemoglobin 10.5 g/dL (12.0-15.0); Lymphocyte % 45.3 % (19-41); Mean Corp Hgb Conc 30.2 g/dL (32-36); Mean Corpuscular Hgb 22.9 pg (27.0-32.0); Mean Corpuscular Volume 75.8 fL (81-99); Mean Platelet Vol. 10.8 fl (6.2-12.0); Monocyte# 0.38 X10^3/uL; Monocyte% 7.2 % (0-10); NRBC Flagged by Analyzer 0 % (0-5); Neutrophil % 45.2 % (47-70); Platelet Count 269 K/mm3 (150-450); RBC Distribution Width CV 15.3 % (11.6-14.6); RBC Distribution Width SD 41.9 fl (35.1-43.9); Red Blood Count 4.59 M/mm3 (4.2-5.4); White Blood Count 5.3 K/mm3 (4.4-11.0)
[2020-02-21 15:20] LABS: ALB/GLOB Ratio 1.2 RATIO (0.9-2.4); AST(SGOT) 12 U/L (15-37); Alanine Aminotransfer ALT/SGPT 22 U/L (13-56); Albumin, Serum 3.9 g/dL (3.2-5.0); Alkaline Phosphatase 49 U/L (45-117); Anion Gap 6 (5-15); BUN 17 mg/dL (7-18); BUN/Creat Ratio 21.6 RATIO (10-20); Calcium,Total 8.5 mg/dL (8.5-10.1); Chloride 101 mmol/L (98-107); Creatinine, Serum 0.79 mg/dL (0.55-1.02); EST Glomerular Filtration Rate 77 mL/min (>60); Est Glom Filt Rate - Afr Amer 93 mL/min (>60); Globulin 3.2 g/dL (2.2-4.2); Glucose 100 mg/dL (74-106); Magnesium 2.4 mg/dL (1.6-2.6); Potassium 3.6 mmol/L (3.5-5.1); Protein, Total 7.1 g/dL (6.4-8.2); Sodium Level 137 mmol/L (136-145)
[2020-02-22 08:48] LABS: Ferritin 42 ng/mL (8-252); Iron 129 ug/dL (50-170)
== END | disposition home or self-care (01) ==
LOC: BFHLAB 13:19
PROVIDERS: PCP Family Medicine; Visit Provider Family Medicine
DX: D64.9 Anemia, unspecified (principal); R58 Hemorrhage, not elsewhere classified; R53.83 Other fatigue; E83.42 Hypomagnesemia
CPT/HCPCS: 36415; 80053; 82728; 83540; 83735; 85025

== ENCOUNTER → 2020-04-10 13:11 | Outpatient (CLI) | payer MEDICARE, SELFPAY ==
[2019-12-07 12:54] VITALS: BMI 24.3
[2020-04-10 15:08] LABS: Absolute Neutrophil Count 2.7 X10^3/uL (2.0-7.7); Basophil# 0.04 X10^3/uL; Basophil% 0.8 % (0-1); Eosinophil# 0.04 X10^3/uL; Eosinophils% 0.8 % (0-5); Hematocrit 36.4 % (37-47); Hemoglobin 11.1 g/dL (12.0-15.0); Lymphocyte % 39.1 % (19-41); Mean Corp Hgb Conc 30.5 g/dL (32-36); Mean Corpuscular Hgb 23.1 pg (27.0-32.0); Mean Corpuscular Volume 75.8 fL (81-99); Mean Platelet Vol. 10.1 fl (6.2-12.0); Monocyte# 0.34 X10^3/uL; Monocyte% 6.7 % (0-10); NRBC Flagged by Analyzer 0 % (0-5); Neutrophil # 2.68 X10^3/uL (2.7-7.7); Neutrophil % 52.4 % (47-70); Platelet Count 282 K/mm3 (150-450); RBC Distribution Width CV 14.6 % (11.6-14.6); RBC Distribution Width SD 40.2 fl (35.1-43.9); White Blood Count 5.1 K/mm3 (4.4-11.0)
[2020-04-10 15:27] LABS: Vitamin B12 775 pg/mL (211-911)
== END ==
PROVIDERS: PCP Family Medicine; Visit Provider Family Medicine
DX: D64.9 Anemia, unspecified (principal)
CPT/HCPCS: 36415; 82607; 85025

== ENCOUNTER → 2020-06-05 | Outpatient (CLI) | payer MEDICARE, SELFPAY ==
[2019-12-07 12:54] VITALS: BMI 24.3
== END | disposition home or self-care (01) ==
LOC: LABSPEC 15:34
PROVIDERS: PCP Family Medicine; Visit Provider Family Medicine
DX: N39.0 Urinary tract infection, site not specified (principal)
CPT/HCPCS: 87086; 87088

== ENCOUNTER → 2020-08-28 | Outpatient (CLI) | payer MEDICARE, SELFPAY ==
[2019-12-07 12:54] VITALS: BMI 24.3
[2020-08-28 13:56] LABS: Mucous, Urine 0 SEEN /hpf (<or=2+); White Blood Cells 0 SEEN /hpf (0-5)
[2020-08-28 14:14] LABS: Color, Urine Yellow (Yellow); Glucose, Dipstick Normal (Normal); Ketone-Dipstick Negative (Negative); Leukocyte Esterase-Dipstick Negative /ul (Negative); Nitrite-Dipstick Negative (Negative); Occult Blood-Urine 25 /ul (Negative); Protein-Dipstick Negative (Negative); Urine Bilirubin Dipstick Negative (Negative); Urine Clarity Clear (Clear); Urine Urobilinogen Normal (Normal)
[2020-08-28 14:21] LABS: Bacteria RARE /hpf (None Seen); Red Blood Cells-Urine 0-5 SEEN /hpf (0-5); Squamous Epithelial Cells - UA 0-5 SEEN /hpf (5-10)
== END | disposition home or self-care (01) ==
LOC: LABSPEC 13:17
PROVIDERS: PCP Family Medicine; Visit Provider Physician Assistant Surgical
DX: N39.0 Urinary tract infection, site not specified (principal); R11.0 Nausea; R82.90 Unspecified abnormal findings in urine
CPT/HCPCS: 81001; 87086; 87088

== ENCOUNTER → 2020-11-13 15:17 | Outpatient (CLI) | payer MEDICARE, SELFPAY ==
[2019-12-07 12:54] VITALS: BMI 24.3
--- NOTE | 2020-11-13 15:19 | BI_ITS ---
MAMMOGRAPHY - BILATERAL SCREENING REASON FOR EXAM: Female, 70 years old. Routine annual screening examination. PERTINENT HISTORY: Mother with breast cancer. TECHNIQUE: Digital bilateral breast douglas (3D mammographic acquisition) in the CC and MLO projections. 2-D mediolateral oblique (MLO) and craniocaudad (CC) views of both breasts were obtained. CAD: Full Field Digital Mammography with Computer Added Detection was performed. COMPARISON: Comparison is made with prior study dated 11/08/2019 and 07/27/2018. FINDINGS: Breast Composition: There are scattered areas of fibroglandular density. There are no dominant masses or suspicious calcifications. Stable 1 cm calcified nodule in the medial retroareolar region of the left breast. No other significant abnormalities are identified. There has been no significant change since the prior study. BI/SCRN MAMM (CAD)W/DOUGLAS BILAT IMPRESSION: Stable bilateral screening mammogram. Yearly follow-up mammogram recommended. (A) ASSESSMENT CATEGORY: BIRADS Category 2: Benign. A letter regarding these results will be sent to the patient by the facility within 30 days. Approximately 10% of breast cancers are not detected by mammography. A normal mammogram should not delay biopsy of a clinically suspicious abnormality. [id number] Electronically Signed: Huseyin Crawley MD at 8:27 EDT , Service support ,
== END ==
PROVIDERS: PCP Internal Medicine; Referring Provider Internal Medicine; Visit Provider Internal Medicine
DX: Z12.31 Encounter for screening mammogram for malignant neoplasm of breast (principal)
CPT/HCPCS: 77063; 77067

== ENCOUNTER → 2020-11-27 13:10 | Outpatient (CLI) | payer MEDICARE, SELFPAY ==
[2019-12-07 12:54] VITALS: BMI 24.3
[2020-11-27 12:44] VITALS: BMI 25.1
--- NOTE | 2020-11-27 13:11 | CT_ITS ---
STUDY: LOW DOSE CT LUNG CANCER SCREENING REASON FOR EXAM: Female, 70 years old. Lung cancer screening -- and amp;gt; 30 pack yr history;former smoker; asymptomatic RADIATION DOSAGE (If Supplied By Facility): CTDIvol = ( 2.01 ) mGy, DLP = ( 58.91 ) mGycm TECHNIQUE: No contrast was administered. Low dose technique was utilized (average mAS-38 and kVp 120). 1.25 mm axial source images with a slice interval of 1.25-mm were reconstructed in lung windows. 2.5 mm axial source images with a slice interval of 2.5-mm were reconstructed in lung windows. 5.0 mm axial source images with a slice interval of 5.0-mm were reconstructed in soft tissue windows. Nodule measured using lung windows on PACS and/or independent workstation with automated measurement of minimum and maximum diameter. Nodule measurement reported as average diameter rounded to the nearest whole number. Growth is defined as an increase ins size of greater than 1.5 mm. COMPARISON: Comparison is made with prior examination dated 11/08/2019. NODULES: No suspicious nodule is seen. Emphysema: Mild degree of linear scarring at the left lung base. Endobronchial lesion: None Aorta: Mild atherosclerotic calcification of the aortic arch. Coronary arteries: Mild coronary artery calcification. Heart: Unremarkable Pulmonary artery: Unremarkable Mediastinal nodes: Small benign-appearing mediastinal lymph nodes. Other chest and abdominal findings: CT/Low Dose CT Lung Screening IMPRESSION: Lung-RADS category 2 - Continue annual screening with LDCT in 12 months. IMPORTANT NOTES FOR USE: ACR Lung-RADS Version 1.1 Assessment Categories Release Date: 2018 Category: Coded 0-4 bases on nodule(s) with highest degree of suspicion. Negative screen is defined as categories 1 and 2; a positive screen is defined as categories 3 and 4. Category 3 and 4A nodules that are unchanged on interval CT should be coded as category 2, and individuals returned to screening in 12 months. Category 4X: Category 3 or 4 nodules with additional imaging findings that increase the suspicion of lung cancer, such as spiculation, GGN that doubles in size in 1 year, enlarged lymph notes, etc. Category Modifiers: S (significant finding unrelated to lung cancer) Electronically Signed: Huseyin Crawley MD at 13:55 EDT , Service support ,
== END ==
PROVIDERS: PCP Internal Medicine; Referring Provider Nurse Practitioner Family; Visit Provider Nurse Practitioner Family
DX: Z87.891 Personal history of nicotine dependence (principal); Z12.2 Encounter for screening for malignant neoplasm of respiratory organs
CPT/HCPCS: 71271

== ENCOUNTER → 2021-01-21 | Outpatient (CLI) | payer MEDICARE, SELFPAY ==
[2021-01-21 17:21] LABS: Cholesterol 258 mg/dL (200); High Density Lipoprotein 117 mg/dL; Thyroid Stim Hormone (TSH) 1.29 uIU/mL (0.358-3.74); Triglycerides 67 mg/dL; Very Low Density Lipoprotein 13 mg/dL (5-40)
== END | disposition home or self-care (01) ==
LOC: LABSPEC 16:23
PROVIDERS: PCP Internal Medicine
DX: R23.2 Flushing (principal); Z13.220 Encounter for screening for lipoid disorders; Z79.899 Other long term (current) drug therapy
CPT/HCPCS: 80061; 84439; 84443

== ENCOUNTER → 2021-01-30 | Outpatient (CLI) | payer MEDICARE, SELFPAY | END | disposition home or self-care (01) | PROVIDERS: Visit Provider Physician Assistant | DX: Z11.52 Encounter for screening for COVID-19 (principal) | CPT/HCPCS: 87635; U0005; U0003 ==

== ENCOUNTER 2021-05-10 18:24 | Outpatient (CLI) | payer BC, SELFPAY ==
[2021-05-10 18:27] LABS: Bacteria 0 SEEN /hpf (None Seen); Mucous, Urine 0 SEEN /hpf (<or=2+); White Blood Cells 0 SEEN /hpf (0-5)
[2021-05-10 18:33] LABS: Color, Urine Yellow (Yellow); Glucose, Dipstick Normal (Normal); Ketone-Dipstick Negative (Negative); Leukocyte Esterase-Dipstick Negative /ul (Negative); Nitrite-Dipstick Negative (Negative); Occult Blood-Urine 10 /ul (Negative); Protein-Dipstick Negative (Negative); Specific Gravity, Urine 1.005 (1.002-1.030); Urine Bilirubin Dipstick Negative (Negative); Urine Clarity Clear (Clear); Urine Urobilinogen Normal (Normal)
[2021-05-10 19:08] LABS: Red Blood Cells-Urine 0-5 SEEN /hpf (0-5); Squamous Epithelial Cells - UA 0-5 SEEN /hpf (5-10)
== END 2021-05-10 23:59 | disposition short-term general hospital (02) ==
PROVIDERS: Referring Provider Physician Assistant Surgical; Visit Provider Physician Assistant Surgical
DX: R35.0 Frequency of micturition (principal)
CPT/HCPCS: 81001; 87086; 87088

== ENCOUNTER 2021-05-23 09:59 | Emergency (ER) | payer MEDICARE, SELFPAY ==
[2021-05-23 10:00] VITALS: BP 164/95; PULSE 72; RESP 14; TEMP 35.8; O2SAT 96; BMI 24.7
[2021-05-23 10:12] VITALS: BP 166/127; PULSE 71; RESP 14; O2SAT 94
--- NOTE | 2021-05-23 10:50 | RAD_ITS ---
STUDY: X-RAY CHEST REASON FOR EXAM: Female, 71 years old. Chest pain TECHNIQUE: Single AP portable view of the chest. COMPARISON: Comparison is made with prior study dated 11/19/2017. FINDINGS: EKG electrodes are seen. The lungs are clear and expanded. There is no demonstrated pleural abnormality. Normal size heart. Normal mediastinum and suraj. Normal visualized pulmonary arteries. Normal visualized aortic arch and descending thoracic aorta. There is a dextroscoliosis of the thoracic spine. Normal visualized ribs, clavicles, and shoulders. There is no demonstrated abnormality of the visualized soft tissue structures of the upper abdomen. RAD/Chest 1 View (Portable) IMPRESSION: No acute abnormality is seen. Electronically Signed: Huseyin Crawley MD at 11:39 EST , Service support ,
--- NOTE | 2021-05-23 10:50 | EKG12_ITS ---
Test Reason : CP Blood Pressure : / mmHG Vent. Rate : 072 BPM Atrial Rate : 072 BPM P-R Int : 146 ms QRS Dur : 070 ms QT Int : 414 ms P-R-T Axes : 050 -13 048 degrees QTc Int : 453 ms Normal sinus rhythm Low voltage QRS (Limb Leads) Nonspecific T wave abnormality Abnormal ECG Confirmed by MARTINA MARTINEZ, ALICIA ([id number]), book or script editor DOUGLAS HESS ([id number]) on 05/24/2021 9:35:05 AM Referred By: JOSEFINA Confirmed By:ALICIA MACK MD
--- NOTE | 2021-05-23 10:51 | EDS_ITS ---
HPI History of Present Illness Chief Complaint: Chest Pain Narrative Narrative: 71-year-old female presenting with 2 weeks of intermittent chest pain. She states that when it comes it is in the center of her chest and sometimes it will last half a day. She states has been happening to her all day. She states that it is so painful she gets a little lightheaded and short of breath. Patient denies fever, chills, cough. She denies headache. Patient states that she does not have any cardiac history or pulmonary problems. She states he is fairly healthy. Patient has no history of DVT/PE and has no risk factors. Patient does report that she has a sliding hiatal hernia. [facility] Medical History Anemia Back pain Constipation COVID-19 Degenerative disc disease, cervical Depression Encounter for screening for COVID-19 Encounter for screening for malignant neoplasm of lung in former smoker who quit in past 15 years with 30 pack year history or greater History of tobacco use Incontinence Migraine Segmental and somatic dysfunction of cervical region Segmental and somatic dysfunction of lumbar region Segmental and somatic dysfunction of thoracic region Sinusitis, acute Urinary frequency Urinary urgency Home Medications zolpidem 10 mg PO QHS 11/09/15 [History Last Taken Unknown] paroxetine HCl 40 mg PO DAILY 11/19/17 [History Last Taken Unknown] sumatriptan succinate 100 mg tablet 100 mg PO PRN PRN 30 Days #9 tab 08/24/18 [History Last Taken Unknown] docusate sodium 100 mg capsule 100 mg PO DAILY #30 cap 05/31/19 [Rx Last Taken Unknown] cholecalciferol (vitamin D3) 1,000 unit PO DAILY 06/29/19 [History Last Taken Unknown] cyanocobalamin (vitamin B-12) 1,000 mcg PO DAILY@0800 06/29/19 [History Last Taken Unknown] triamcinolone acetonide 2 spray INTRANASAL DAILY PRN 06/29/19 [History Last Taken Unknown] magnesium citrate 300 ml PO ONCE #296 ml 10/18/19 [Rx Last Taken Unknown] peg 3350-electrolytes 236 gram-22.74 gram-6.74 gram-5.86 gram solution 4,000 ml PO ONCE #4000 ml 10/18/19 [Rx Last Taken Unknown] biotin 10 mg tablet 10 mg PO DAILY 07/27/21 [History Last Taken Unknown] Allergy/AdvReac Type Severity Reaction Status Date / Time No Known Allergies Allergy Verified 05/23/21 10:00 Family History Mother Breast cancer Father Cancer Hypertension CVA (cerebral vascular accident) Diabetes Thyroid disorder Brother Diabetes Surgical History History of cholecystectomy history ORIF leg Hx of tonsillectomy Social History Smoking Status: Former smoker quit date: 12/02/16 pack-years: 39 how long ago did patient quit smokin years second hand exposure: No quit status: quit date established alcohol intake: current ROS ROS ED Constitutional Constitutional ED: Denies chills or fever(s) Eyes Eyes: Denies blurry vision or change in vision ENT ENT ED: Denies rhinorrhea or sore throat Cardiovascular Cardiovascular: Reports as per HPI Respiratory/Chest Respiratory/Chest: Reports dyspnea; Denies cough or sputum Gastrointestinal Gastrointestinal: Reports nausea; Denies abdominal pain Genitourinary Genitourinary ED: Denies dysuria or hematuria Musculoskeletal Musculoskeletal: Denies arthralgias, back pain, myalgias or neck pain Integumentary Denies rash Neurologic Neurologic: Denies headache(s) or weakness EXAM Physical Exam Const Vital Signs: 05/23/21 10:00 05/23/21 10:12 05/23/21 10:52 Temperature 96.5 F L Temperature Source Temporal Pulse Rate 72 71 Respiratory Rate 14 14 Respiratory Effort Short of Breath Blood Pressure 164/95 H 166/127 H Blood Pressure Mean 118 140 Pulse Ox 96 94 Oxygen Delivery Method Room Air Room Air Room Air 05/23/21 12:00 05/23/21 13:21 Temperature Temperature Source Pulse Rate 76 71 Respiratory Rate 29 H 15 Respiratory Effort Blood Pressure 159/89 H 161/90 H Blood Pressure Mean 112 113 Pulse Ox 100 99 Oxygen Delivery Method Room Air Room Air Positive well nourished General Appearance ED: NAD; Negative for pallor HEENT Reports moist mucous membranes normocephalic and atraumatic Eyes PERRL and EOMs intact bilaterally General Eye ED: Negative for pale conjunctiva or scleral icterus Chest Wall inspection of chest normal and palpation of chest normal Resp normal respiratory effort Effort and Inspection: respiratory distress Cardio regular rate and regular rhythm Extremity normal to inspection General Extremety ED: Negative for edema or tenderness General Extremity: Negative for edema Neuro oriented x3 Sensorium / Orientation: awake and alert Psych mental status grossly normal Skin General Skin Exam: Negative for jaundice or pallor Heart Score History: Slightly/Non-Suspicious ECG: Normal Age: >/= 65 years Risk Factors: No Risk Factors Score: 2 MDM MDM MDM Narrative Medical decision making narrative: Patient presenting with chest pain which comes and goes and can last up to half a day at times. She states that sometimes it makes her dizzy and short of breath because the pain is so bad. Patient does not have any cardiac history. She states she is healthy individual. EKG on my interpretation shows a sinus rhythm with a ventricular rate of [address] elevation or depression. There is no dysrhythmia. CBC, BMP are unremarkable. D-dimer is negative. High-sensitivity troponin initially is 20 and the delta troponin is 18. Chest x-ray on my interpretation shows no acute cardiopulmonary process and radiologist agree. I feel this rules out ACS. Patient most likely has pain due to her hiatal hernia I will refer her to Dr. Dela Cruz. Impression: 1. Chest pain noncardiac 2. History of hiatal hernia Lab Data Attestation: I reviewed the patient's lab results. Labs: Laboratory Results - last 24 hr 05/23/21 05/23/21 05/23/21 10:25 10:25 10:25 WBC 6.5 RBC 5.18 Hgb 11.8 L Hct 37.8 MCV 73.0 L MCH 22.8 L MCHC 31.2 L RDW Std Deviation 38.1 RDW Coeff of [place] 14.6 Plt Count 315 MPV 10.0 Immature Gran % (Auto) 0.200 Neut % (Auto) 60.9 Lymph % (Auto) 31.0 [place] % (Auto) 6.3 Eos % (Auto) 0.8 Baso % (Auto) 0.8 Absolute Neuts (auto) 4.0 Absolute Lymphs (auto) 2.01 Nucleated RBC % 0 D-Dimer Quant (PE/DVT) <= 0.27 Sodium 140 Potassium 3.8 Chloride 106 Carbon Dioxide 26.0 Anion Gap 8 BUN 17 Creatinine 0.86 Estim Creat Clear Calc 42.47 Est GFR (MDRD) Af Amer 83 Est GFR (MDRD) Non-Af 69 BUN/Creatinine Ratio 19.8 Glucose 112 H Calcium 9.5 Troponin I High Sens 20 05/23/21 12:30 WBC RBC Hgb Hct MCV MCH MCHC RDW Std Deviation RDW Coeff of [place] Plt Count MPV Immature Gran % (Auto) Neut % (Auto) Lymph % (Auto) [place] % (Auto) Eos % (Auto) Baso % (Auto) Absolute Neuts (auto) Absolute Lymphs (auto) Nucleated RBC % D-Dimer Quant (PE/DVT) Sodium Potassium Chloride Carbon Dioxide Anion Gap BUN Creatinine Estim Creat Clear Calc Est GFR (MDRD) Af Amer Est GFR (MDRD) Non-Af BUN/Creatinine Ratio Glucose Calcium Troponin I High Sens 18 Radiography Diagnostic Testing: Clinical Impression(s) from Imaging Studies Chest X-Ray 05/23/21 10:50 IMPRESSION: No acute abnormality is seen. Electronically Signed: Huseyin Crawley MD at 11:39 EST , Service support , Discharge Plan Triage Chief Complaint: Chest Pain ED Provider: Elmer Baugh Dx/Rx/DC Orders Instructions: ED Chest Pain, Noncardiac, ED Hiatal Hernia Prescriptions: No Action sumatriptan succinate 100 mg tablet 100 mg PO PRN PRN (Reason: migraines) 30 Days Qty: 9 RF: 0 docusate sodium 100 mg capsule 100 mg PO DAILY Qty: 30 RF: 3 biotin 10 mg tablet 10 mg PO DAILY RF: 0 zolpidem 10 MG tablet 10 mg PO QHS RF: 0 paroxetine HCl 40 MG tablet 40 mg PO DAILY RF: 0 cyanocobalamin (vitamin B-12) 500 MCG tablet 1,000 mcg PO DAILY@0800 RF: 0 cholecalciferol (vitamin D3) 1,000 UNIT tablet 1,000 unit PO DAILY RF: 0 triamcinolone acetonide 16.9 ML aerosol,spray 2 spray intranasal DAILY PRN (Reason: Congestion) RF: 0 magnesium citrate Solution 300 ml PO ONCE Qty: 296 RF: 0 peg 3350-electrolytes 236-22.74-6.74 -5.86 gram recon soln 4,000 ml PO ONCE Qty: 4000 RF: 0 Primary Care Provider: Angela Connor Referrals: Angela Connor MD [Primary Care Provider] - Friend,DO Jesus Manuel [STAFF PHYSICIAN] - As soon as possible Disposition Disposition: Home, Self Care
[2021-05-23 11:00] LABS: Absolute Lymphocyte Count 2.01 X10^3/uL (0.83-4.51); Basophil# 0.05 X10^3/uL; Basophil% 0.8 % (0-1); Eosinophil# 0.05 X10^3/uL; Eosinophils% 0.8 % (0-5); Hematocrit 37.8 % (37-47); Hemoglobin 11.8 g/dL (12.0-15.0); Lymphocyte # 2.01 X10^3/ul (0.83-4.51); Mean Corp Hgb Conc 31.2 g/dL (32-36); Mean Corpuscular Hgb 22.8 pg (27.0-32.0); Monocyte# 0.41 X10^3/uL; Monocyte% 6.3 % (0-10); NRBC Flagged by Analyzer 0 % (0-5); Neutrophil # 3.96 X10^3/uL (2.7-7.7); Neutrophil % 60.9 % (47-70); Platelet Count 315 K/mm3 (150-450); RBC Distribution Width CV 14.6 % (11.6-14.6); RBC Distribution Width SD 38.1 fl (35.1-43.9); Red Blood Count 5.18 M/mm3 (4.2-5.4); White Blood Count 6.5 K/mm3 (4.4-11.0)
[2021-05-23 11:08] LABS: D-Dimer Quantitative (DVT/PE) <= 0.27 FEU/ug/m (0.27-0.49)
[2021-05-23 11:13] LABS: Anion Gap 8 (5-15); BUN 17 mg/dL (7-18); BUN/Creat Ratio 19.8 RATIO (10-20); Calcium,Total 9.5 mg/dL (8.5-10.1); Chloride 106 mmol/L (98-107); Creatinine, Serum 0.86 mg/dL (0.55-1.02); EST Glomerular Filtration Rate 69 mL/min (>60); Est Glom Filt Rate - Afr Amer 83 mL/min (>60); Estimated Creatinine Clearance 42.47 ml/min; Glucose 112 mg/dL (74-106); Potassium 3.8 mmol/L (3.5-5.1); Sodium Level 140 mmol/L (136-145); Troponin-I HS 20 pg/mL (3.0-54.0)
[2021-05-23 12:00] VITALS: BP 159/89; PULSE 76; RESP 29; O2SAT 100
[2021-05-23 13:03] LABS: Troponin-I HS 18 pg/mL (3.0-54.0)
[2021-05-23 13:21] VITALS: BP 161/90; PULSE 71; RESP 15; O2SAT 99
[2021-05-23 13:37] VITALS: BP 165/91; PULSE 71; RESP 16; O2SAT 100
== END 2021-05-23 13:38 | disposition home or self-care (01) ==
PROVIDERS: Emergency Provider Student in an Organized Health Care Education/Training Program; PCP Internal Medicine; Visit Provider Student in an Organized Health Care Education/Training Program
DX: R07.89 Other chest pain (principal); Z87.891 Personal history of nicotine dependence; Z86.16 Personal history of COVID-19
CPT/HCPCS: 71045; 80048; 84484; 85025; 85379; 93005; 99283; A4216

== ENCOUNTER → 2022-01-14 | Outpatient (CLI) | payer MEDICARE, SELFPAY ==
--- NOTE | 2022-01-14 12:02 | CT_ITS ---
STUDY: LOW DOSE CT LUNG CANCER SCREENING REASON FOR EXAM: Female, 71 years old. Lung cancer screening -- and gt; 30 pk yr hx; former smoker; asymptomatic RADIATION DOSAGE (If Supplied By Facility): CTDIvol = ( 2.01 ) mGy, DLP = ( 57.15 ) mGycm TECHNIQUE: No contrast was administered. Low dose technique was utilized (average mAS-38 and kVp 120). 1.25 mm axial source images with a slice interval of 1.25-mm were reconstructed in lung windows. 2.5 mm axial source images with a slice interval of 2.5-mm were reconstructed in lung windows. 5.0 mm axial source images with a slice interval of 5.0-mm were reconstructed in soft tissue windows. COMPARISON: Comparison is made with prior study dated 11/27/2020. NODULES: No suspicious nodules are seen. Emphysema: Hyperinflation. Stable mild degree of linear scarring at the left base. Endobronchial lesion: None Aorta: Minimal atherosclerotic plaques of the aortic arch. CORONARY ARTERIES: Coronary artery calcification mild coronary artery calcification. Heart: Unremarkable Pulmonary artery: Unremarkable Mediastinal nodes: Unremarkable Other chest and abdominal findings: CT/Low Dose CT Lung Screening IMPRESSION: Lung-RADS category 2 - Continue annual screening with LDCT in 12 months. IMPORTANT NOTES FOR USE: ACR Lung-RADS Version 1.1 Assessment Categories Release Date: 2018 Category: Coded 0-4 bases on nodule(s) with highest degree of suspicion. Negative screen is defined as categories 1 and 2; a positive screen is defined as categories 3 and 4. Category 3 and 4A nodules that are unchanged on interval CT should be coded as category 2, and individuals returned to screening in 12 months. Category 4X: Category 3 or 4 nodules with additional imaging findings that increase the suspicion of lung cancer, such as spiculation, GGN that doubles in size in 1 year, enlarged lymph notes, etc. Category Modifiers: S (significant finding unrelated to lung cancer) Electronically Signed: Huseyin Crawley MD at 13:41 EDT ,
== END | disposition home or self-care (01) ==
LOC: CT 12:01
PROVIDERS: PCP Internal Medicine; Referring Provider Nurse Practitioner Family; Visit Provider Nurse Practitioner Family
DX: Z87.891 Personal history of nicotine dependence (principal); Z12.2 Encounter for screening for malignant neoplasm of respiratory organs
CPT/HCPCS: 71271

== ENCOUNTER → 2022-09-23 | Outpatient (CLI) | payer MEDICARE, SELFPAY ==
[2022-09-23 14:43] LABS: Erythrocyte Sedimentation Rate 5 mm/hr (0-30)
[2022-09-23 14:45] LABS: Absolute Lymphocyte Count 2.81 X10^3/uL (0.83-4.51); Absolute Neutrophil Count 4.7 X10^3/uL (2.0-7.7); Basophil# 0.04 X10^3/uL; Basophil% 0.5 % (0-1); Eosinophil# 0.07 X10^3/uL; Eosinophils% 0.9 % (0-5); Hematocrit 39.3 % (37-47); Hemoglobin 12.1 g/dL (12.0-15.0); Lymphocyte # 2.81 X10^3/ul (0.83-4.51); Lymphocyte % 34.1 % (19-41); Mean Corp Hgb Conc 30.8 g/dL (32-36); Mean Corpuscular Hgb 23.3 pg (27.0-32.0); Mean Corpuscular Volume 75.6 fL (81-99); Mean Platelet Vol. 9.7 fl (6.2-12.0); Monocyte# 0.57 X10^3/uL; Monocyte% 6.9 % (0-10); NRBC Flagged by Analyzer 0 % (0-5); Neutrophil # 4.73 X10^3/uL (2.7-7.7); Neutrophil % 57.5 % (47-70); Platelet Count 343 K/mm3 (150-450); RBC Distribution Width CV 15.2 % (11.6-14.6); RBC Distribution Width SD 41.1 fl (35.1-43.9); White Blood Count 8.2 K/mm3 (4.4-11.0)
[2022-09-23 15:45] LABS: ALB/GLOB Ratio 1.1 RATIO (0.9-2.4); AST(SGOT) 17 U/L (15-37); Alanine Aminotransfer ALT/SGPT 24 U/L (13-56); Albumin, Serum 3.9 g/dL (3.2-5.0); Alkaline Phosphatase 61 U/L (45-117); Anion Gap 5 (5-15); BUN 19 mg/dL (7-18); BUN/Creat Ratio 22.2 RATIO (10-20); CRP < 2.90 mg/L (0.0-3.0); Calcium,Total 9.1 mg/dL (8.5-10.1); Chloride 107 mmol/L (98-107); Creatinine, Serum 0.86 mg/dL (0.55-1.02); EST Glomerular Filtration Rate 69 mL/min (>60); Est Glom Filt Rate - Afr Amer 83 mL/min (>60); Ferritin 40 ng/mL (8-252); Globulin 3.7 g/dL (2.2-4.2); Glucose 104 mg/dL (74-106); Iron 124 ug/dL (50-170); Potassium 3.8 mmol/L (3.5-5.1); Protein, Total 7.6 g/dL (6.4-8.2); Sodium Level 139 mmol/L (136-145)
[2022-09-25 12:09] LABS: Anti-Centromere B Ab <0.2 AI (0.0-0.9); Anti-Chromatin <0.2 AI (0.0-0.9); Anti-Jo <0.2 AI (0.0-0.9); Anti-Scleroderma-70 AB <0.2 AI (0.0-0.9); Anti-dsDNA Ab 1 IU/mL (0-9); RNP Ab <0.2 AI (0.0-0.9); SJOGREN'S Anti-SS-A test < 0.2 AI (0.0-0.9); SJOGREN'S Anti-SS-B test < 0.2 AI (0.0-0.9); Smith Ab <0.2 AI (0.0-0.9)
[2022-09-25 16:09] LABS: Cytoplasmic Ab (C-ANCA) <1:20 titer (Neg:<1:20); Endomysial Antibody IgA Negative (Negative); Immunoglobulin A 79 mg/dL (64-422); Perinuclear Ab (P-ANCA) <1:20 titer (Neg:<1:20); t-Transglutaminase IgA <2 U/mL (0-3)
== END | disposition home or self-care (01) ==
LOC: LAB 14:17
PROVIDERS: PCP Internal Medicine; Referring Provider Nurse Practitioner Adult Health; Visit Provider Nurse Practitioner Adult Health
DX: R19.7 Diarrhea, unspecified (principal); D84.9 Immunodeficiency, unspecified; D64.9 Anemia, unspecified
CPT/HCPCS: 36415; 80053; 82728; 82784; 83516; 83540; 83550; 85025; 85652; 86140; 86225; 86235; 86255; 86256

== ENCOUNTER → 2022-09-24 | Outpatient (CLI) | payer MEDICARE, SELFPAY | END | disposition home or self-care (01) | LOC: LABSPEC 10:46 | PROVIDERS: PCP Internal Medicine; Referring Provider Nurse Practitioner Adult Health; Visit Provider Nurse Practitioner Adult Health | DX: K58.0 Irritable bowel syndrome with diarrhea (principal); D84.9 Immunodeficiency, unspecified | CPT/HCPCS: 87493; 87506 ==

== ENCOUNTER → 2023-04-07 | Outpatient (CLI) | payer MEDICARE, SELFPAY ==
--- NOTE | 2023-04-07 13:21 | CT_ITS ---
STUDY: LOW DOSE CT LUNG CANCER SCREENING REASON FOR EXAM: Female, 73 years old. Lung cancer screening -- and gt;20 pk yr hx;former smoker; asymptomatic RADIATION DOSAGE (If Supplied By Facility): CTDIvol = ( 2.01 ) mGy, DLP = ( 59.42 ) mGycm TECHNIQUE: No contrast was administered. Low dose technique was utilized (average mAS-38 and kVp 120). 1.25 mm axial source images with a slice interval of 1.25-mm were reconstructed in lung windows. 2.5 mm axial source images with a slice interval of 2.5-mm were reconstructed in lung windows. 5.0 mm axial source images with a slice interval of 5.0-mm were reconstructed in soft tissue windows. COMPARISON: Comparison is made with prior study dated January 14, 2022. NODULES: No suspicious nodules are seen. Emphysema: Hyperinflation. Stable mild degree of linear scarring at the left lung base and lung apices. Endobronchial lesion: None Aorta: Minimal atherosclerotic plaques of the aortic arch. CORONARY ARTERIES: Coronary artery calcification is seen. Heart: Unremarkable Pulmonary artery: Unremarkable Mediastinal nodes: Small mediastinal lymph nodes. Other chest and abdominal findings: CT/Low Dose CT Lung Screening IMPRESSION: Lung-RADS category 2 - Continue annual screening with LDCT in 12 months. IMPORTANT NOTES FOR USE: ACR Lung-RADS Version 1.1 Assessment Categories Release Date: 2018 Category: Coded 0-4 bases on nodule(s) with highest degree of suspicion. Negative screen is defined as categories 1 and 2; a positive screen is defined as categories 3 and 4. Category 3 and 4A nodules that are unchanged on interval CT should be coded as category 2, and individuals returned to screening in 12 months. Category 4X: Category 3 or 4 nodules with additional imaging findings that increase the suspicion of lung cancer, such as spiculation, GGN that doubles in size in 1 year, enlarged lymph notes, etc. Category Modifiers: S (significant finding unrelated to lung cancer) Electronically Signed: Huseyin Crawley MD at 15:28 EST ,
== END | disposition home or self-care (01) ==
LOC: CT 13:20
PROVIDERS: PCP Internal Medicine; Referring Provider Nurse Practitioner Family; Visit Provider Nurse Practitioner Family
DX: Z12.2 Encounter for screening for malignant neoplasm of respiratory organs (principal); Z87.891 Personal history of nicotine dependence
CPT/HCPCS: 71271

== ENCOUNTER → 2023-07-22 | Outpatient (CLI) | payer MEDICARE, SELFPAY ==
--- NOTE | 2023-07-22 13:08 | CT_ITS ---
STUDY: CT MAXILLOFACIAL SINUSES REASON FOR EXAM: Female, 73 years old. SINUSITIS RADIATION DOSAGE (If Supplied By Facility): CTDIvol = ( 33.06 ) mGy, DLP = ( 776.00 ) mGycm TECHNIQUE: The patient was scanned in a multi detector CT scanner. High resolution axial imaging was performed without the administration of intravenous contrast material. Sagittal and coronal images were reconstructed. Individualized dose optimization techniques were used for this CT. COMPARISON: None. 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 ETHMOIDAL SINUSES: Normal aeration, without mucosal inflammatory disease. MAXILLARY SINUSES: Normal aeration, without mucosal inflammatory disease. SPHENOIDAL SINUSES: Minimal degree of mucosal thickening along the anterior wall of the right sphenoid sinus. There is patency of the bilateral maxillary infundibuli with normal uncinate processes, ethmoid bullae, and hiatus semilunaris. Normal bilateral middle turbinates. Normal bilateral inferior turbinates. There is a mild left sided nasal septal deviation, but without a nasal septal spur. There is patency of the bilateral nasal airways. The visualized osseous structures are normal. The visualized bilateral orbital contents are normal. CT/Sinus/Facial Bone IMPRESSION: Mild degree of mucosal thickening of the right sphenoid sinus. Electronically Signed: Huseyin Crawley MD at 13:29 EDT ,
== END | disposition home or self-care (01) ==
PROVIDERS: PCP Internal Medicine; Referring Provider Otolaryngology Otolaryngology/Facial Plastic Surgery; Visit Provider Otolaryngology Otolaryngology/Facial Plastic Surgery
DX: J32.9 Chronic sinusitis, unspecified (principal)
CPT/HCPCS: 70486